=== PATIENT | female | born 1995 | race African-American/Black ===

== ENCOUNTER 2025-03-16 15:51 | Emergency (ER) | payer MEDICAID ==
[~2025-03-16] VITALS: Ht 160 cm; Wt 47.6 kg
[2025-03-16 16:43] LABS: PLATELET COUNT (AUTO) 192 K/uL (150-450); RED BLOOD CELL COUNT(AUTO) 4.21 MIL/uL (4.0-5.2); RED CELL DISTRIBUTION WIDTH 12.7 % (11.5-15.0); WHITE BLOOD COUNT (AUTO) 18.2 K/uL (4.3-11.0)
[2025-03-16] MEDS ORDERED: IOHEXOL-300 100 ML VIAL IV ONE (16:47)
[2025-03-16] MEDS ORDERED: IV NS 0.9% 250 ML IV ONE (16:48)
[2025-03-16 16:49] LABS: CALCIUM, SERUM 8.6 mg/dL (8.5-10.1); CREATININE 0.7 mg/dL (0.6-1.3); SODIUM SERUM 139.0 mmol/L (136-145); UREA NITROGEN, BLOOD 9.0 mg/dL (7-18)
[2025-03-16 16:55] LABS: ASPARTATE AMINOTRANSFERASE 20.0 U/L (15-37); TOTAL PROTEIN, SERUM 6.8 g/dL (6.4-8.2)
[2025-03-16 17:35] LABS: PREGNANCY TEST URINE QUAL NEGATIVE (NEGATIVE)
[2025-03-16] MEDS ORDERED: SULF1TAB48 PO (18:38)
[2025-03-16 19:55] VITALS: BP 100/74; TEMP 98.6; O2SAT 99
== END 2025-03-16 19:55 | disposition home or self-care (01) ==
LOC: ER 15:55
DX: K04.7 Periapical abscess without sinus (principal); K04.8 Radicular cyst
CPT/HCPCS: 99285; 70487; 85025; 80048; 80076; 84703; 36415; J7050; Q9967